=== PATIENT | female | born 2000 | race Hispanic/Latino ===

== ENCOUNTER 2022-02-23 22:48 | Emergency (ER) | payer MEDICAID, OTHER ==
[~2022-02-23] VITALS: Ht 152.4 cm; Wt 52.2 kg
[2022-02-23] MEDS ORDERED: 0.9%NACL 1000ML 1,000 ML IV ONE (23:00)
[2022-02-23 23:09] LABS: BASOPHILS % (AUTO) 0.4 % (0.0-5.0); EOSINOPHILS % (AUTO) 0.7 % (0.0-8.0); HEMATOCRIT 31.7 % (36-48); LYMPHOCYTES % (AUTO) 29.9 % (21.0-51.0); MEAN CORPUSCULAR HEMOGLOBIN 30.4 pg (27.0-33.0); MEAN CORPUSCULAR HGB CONC 32.5 g/dL (32.0-36.0); MEAN CORPUSCULAR VOLUME 93.5 fL (80-100); MONOCYTES % (AUTO) 9.1 % (3.0-13.0); NEUTROPHILS % (AUTO) 59.7 % (40.0-77.0); PLATELET COUNT (AUTO) 315 K/uL (130-400); RED BLOOD CELL COUNT(AUTO) 3.39 MIL/uL (4.00-5.50); RED CELL DISTRIBUTION WIDTH 12.5 % (11.0-15.5); WHITE BLOOD COUNT (AUTO) 8.4 K/uL (4.8-10.8)
[2022-02-23 23:27] LABS: CREATININE 0.9 mg/dL (0.5-1.5); POTASSIUM 3.7 mmol/L (3.5-5.1)
[2022-02-23] MEDS ORDERED: KETOROLAC 15MG/ML VIAL (15MG/ML) IV ONE (23:30)
[2022-02-23] MEDS ORDERED: METOCLOPRAMIDE 10 MG/2 ML VIAL IVP ONE (23:30)
[2022-02-23] MEDS ORDERED: DiphenhydrAMINE HCL 50 MG/ML VIAL IV ONE (23:30)
[2022-02-23] MEDS ORDERED: FAMOTIDINE 20MG VIAL IV ONE (23:30)
[2022-02-23 23:31] LABS: ALBUMIN 3.5 g/dL (3.5-5.0); BILIRUBIN,TOTAL 0.4 mg/dL (0.2-1.0); TOTAL PROTEIN, SERUM 7.7 g/dL (6.0-8.3)
[2022-02-23 23:51] LABS: APPEARANCE,URINE Clear (CLEAR); BILIRUBIN,URINE Negative (NEGATIVE); COLOR,URINE Yellow (YELLOW); GLUCOSE, URINE (UA) Negative (NEGATIVE); KETONES,URINE Trace mg/dL (NEGATIVE); LEUKOCYTE ESTERASE ,URINE Small (NEGATIVE); NITRATE,URINE Negative (NEGATIVE); OCCULT BLOOD,URINE Negative (NEGATIVE); PH,URINE 7.5 (5.0-8.0); PROTEIN,URINE Negative (NEGATIVE)
[2022-02-23 23:53] LABS: HCG,QUAL RESULT NEGATIVE (NEGATIVE)
[2022-02-23 23:59] LABS: BACTERIA,URINE Rare /HPF (None Seen); RBC,URINE None Seen /HPF (0-1); SQUAMOUS EPITHELIAL CELL,UR 0-2 /HPF (0-2)
[2022-02-24] MEDS ORDERED: HALOPERIDOL INJ 5 MG/ML VIAL IM SCH (00:30)
[2022-02-24 02:00] VITALS: BP 124/89
[2022-02-24] MEDS ORDERED: ONDANSETRON 4MG INJ IVP ONE (04:30)
[2022-02-24] MEDS ORDERED: MORPHINE 4 MG SYG IVP ONE (04:30)
[2022-02-24] MEDS ORDERED: CEFTRIAXONE 1G VIAL IVP ONE (04:30)
[2022-02-24] MEDS ORDERED: DOXYCYCLINE HYCLATE 100 MG TABLET PO SCH (04:30)
[2022-02-24] MEDS ORDERED: ACET-2079 PO (04:35)
[2022-02-24] MEDS ORDERED: DOXY-336 PO (04:35)
== END 2022-02-24 05:54 | disposition home or self-care (01) ==
LOC: EDH 22:48
DX: N73.0 Acute parametritis and pelvic cellulitis (principal); N83.201 Unspecified ovarian cyst, right side
CPT/HCPCS: 36415; 74176; 80053; 81001; 81025; 83690; 85025; 87210; 87486; 87797; 96361; 96374; 96375 ×2; 99284; J0696; J1200; J1885; J2270; J2405; J2765; J3490; J7030

== ENCOUNTER 2022-09-22 21:57 | Emergency (ER) | payer BC, OTHER ==
[~2022-09-22 21:57] MED LIST: ACET-2079 PO; DOXY-469 PO
[2022-09-22] MEDS ORDERED: ONDANSETRON ODT 4MG TAB SL STA (23:52)
[2022-09-23 01:26] VITALS: BP 167/73
== END 2022-09-23 01:35 | disposition home or self-care (01) ==
LOC: EDH 21:57
DX: R11.2 Nausea with vomiting, unspecified (principal); K08.89 Other specified disorders of teeth and supporting structures; Z88.0 Allergy status to penicillin; F17.200 Nicotine dependence, unspecified, uncomplicated

== ENCOUNTER 2023-08-05 13:24 | Emergency (ER) | payer BC, MEDICAID ==
[~2023-08-05] VITALS: Ht 152.4 cm; Wt 56.7 kg
[2023-08-05] MEDS ORDERED: ONDANSETRON 4MG INJ IVP ONE (14:00)
[2023-08-05] MEDS ORDERED: ACETAMINOPHEN 325 MG TAB PO ONE (14:00)
[2023-08-05] MEDS ORDERED: 0.9%NACL 1000ML 1,000 ML IV ONE (14:00)
[2023-08-05 14:44] LABS: BASOPHILS # (AUTO) 0.03 K/uL (0.00-0.20); BASOPHILS % (AUTO) 0.3 % (0.0-5.0); EOSINOPHILS # (AUTO) 0.05 K/uL (0.00-0.70); EOSINOPHILS % (AUTO) 0.6 % (0.0-8.0); HEMATOCRIT 31.2 % (36-48); IMMATURE GRANULOCYTE ABSOLUTE 0.03 K/uL (0-1); LYMPHOCYTES # (AUTO) 2.1 K/uL (1.0-4.8); LYMPHOCYTES % (AUTO) 22.9 % (21.0-51.0); MEAN CORPUSCULAR HEMOGLOBIN 31.3 pg (27.0-33.0); MEAN CORPUSCULAR HGB CONC 34.3 g/dL (32.0-36.0); MEAN CORPUSCULAR VOLUME 91.2 fL (79-99); MONOCYTES # (AUTO) 0.8 K/uL (0.1-1.0); MONOCYTES % (AUTO) 8.4 % (3.0-13.0); NEUTROPHILS % (AUTO) 67.5 % (40.0-77.0); PLATELET COUNT (AUTO) 285 K/uL (130-400); RED BLOOD CELL COUNT(AUTO) 3.42 MIL/uL (4.00-5.50); RED CELL DISTRIBUTION WIDTH 11.9 % (11.0-15.5); WHITE BLOOD COUNT (AUTO) 8.9 K/uL (4.8-10.8)
[2023-08-05 14:57] LABS: CREATININE 0.6 mg/dL (0.5-1.5); POTASSIUM 3.6 mmol/L (3.5-5.1)
[2023-08-05 15:02] LABS: ALBUMIN 3.1 g/dL (3.5-5.0); BILIRUBIN,TOTAL 0.2 mg/dL (0.2-1.0)
[2023-08-05 15:43] LABS: APPEARANCE,URINE CLEAR (CLEAR); BILIRUBIN,URINE NEGATIVE (NEGATIVE); COLOR,URINE YELLOW (YELLOW); GLUCOSE, URINE (UA) NEGATIVE (NEGATIVE); KETONES,URINE 5 mg/dL (NEGATIVE); LEUKOCYTE ESTERASE ,URINE NEGATIVE Leu/uL (NEGATIVE); NITRATE,URINE NEGATIVE (NEGATIVE); OCCULT BLOOD,URINE NEGATIVE (NEGATIVE); PH,URINE 5.5 (5.0-8.0); PROTEIN,URINE 20 mg/dL (NEGATIVE); UROBILINOGEN,URINE 0.2 mg/dL (0.2-1.0)
[2023-08-05 15:46] LABS: ADD UA MICROSCOPIC YES
[2023-08-05 15:49] LABS: BACTERIA,URINE RARE /HPF (None Seen); MUCUS,URINE FEW LPF (None Seen); RBC,URINE 0-1 /HPF (0-1); SQUAMOUS EPITHELIAL CELL,UR FEW /HPF (0-2)
[2023-08-05] MEDS ORDERED: LACTATED RINGERS 1000ML 1,000 ML IV ONE (16:00)
[2023-08-05 16:30] VITALS: BP 126/64; PULSE 66; RESP 18; O2SAT 99
== END 2023-08-05 16:48 | disposition home or self-care (01) ==
LOC: EDH 13:24
DX: O47.9 False labor, unspecified (principal); O99.330 Smoking (tobacco) complicating pregnancy, unspecified trimester; F17.200 Nicotine dependence, unspecified, uncomplicated; Z79.899 Other long term (current) drug therapy; Z88.0 Allergy status to penicillin; Z3A.12 12 weeks gestation of pregnancy
CPT/HCPCS: 99285; 96361; 96374; 76801; 80053; 85025; 81001; 36415; J7120; J7030; J2405

== ENCOUNTER 2023-08-26 11:39 | Emergency (ER) | payer MEDICAID ==
[~2023-08-26] VITALS: Ht 152.4 cm; Wt 57.6 kg
[2023-08-26 11:53] VITALS: BP 115/71; PULSE 67; RESP 17
[2023-08-26 12:32] LABS: SARS-CoV-2, RNA, NAAT NEGATIVE SARS CoV-2 (NEGATIVE)
[2023-08-26 12:38] LABS: INFLUENZA TYPE A Negative For Type A (NEGATIVE); INFLUENZA TYPE B Negative For Type B (NEGATIVE)
[2023-08-26 12:52] LABS: ADD UA MICROSCOPIC YES; APPEARANCE,URINE CLEAR (CLEAR); BILIRUBIN,URINE NEGATIVE (NEGATIVE); COLOR,URINE YELLOW (YELLOW); GLUCOSE, URINE (UA) NEGATIVE (NEGATIVE); HCG,QUALITATIVE URINE POSITIVE (NEGATIVE); KETONES,URINE NEGATIVE (NEGATIVE); LEUKOCYTE ESTERASE ,URINE 25 Leu/uL (NEGATIVE); NITRATE,URINE NEGATIVE (NEGATIVE); OCCULT BLOOD,URINE NEGATIVE (NEGATIVE); PROTEIN,URINE 10 mg/dL (NEGATIVE); UROBILINOGEN,URINE 0.2 mg/dL (0.2-1.0)
[2023-08-26 12:55] LABS: MUCUS,URINE RARE LPF (None Seen); RBC,URINE 0-1 /HPF (0-1); SQUAMOUS EPITHELIAL CELL,UR MOD /HPF (0-2)
[2023-08-26] MEDS ORDERED: ACET-2893 PO (13:30)
[2023-08-26] MEDS ORDERED: NYST15OI TP (13:37)
== END 2023-08-26 13:55 | disposition home or self-care (01) ==
LOC: EDH 11:39
DX: O23.592 Infection of other part of genital tract in pregnancy, second trimester (principal); B37.31 Acute candidiasis of vulva and vagina; B34.9 Viral infection, unspecified; F17.200 Nicotine dependence, unspecified, uncomplicated; Z20.822 Contact with and (suspected) exposure to COVID-19; Z3A.16 16 weeks gestation of pregnancy; Z88.0 Allergy status to penicillin
CPT/HCPCS: 99283; 87635; 87804 ×2; 81001; 81025; C9803

== ENCOUNTER 2023-10-18 18:55 | Observation (INO) | payer MEDICAID ==
[~2023-10-18] VITALS: Ht 165.1 cm; Wt 64.9 kg
[~2023-10-18 18:55] MED LIST changes: +ACET-2893 PO; +NYST15OI TP
[2023-10-18 18:57] VITALS: BP 137/66; PULSE 70; RESP 16
[2023-10-18 19:53] LABS: APPEARANCE,URINE CLEAR (CLEAR); BILIRUBIN,URINE NEGATIVE (NEGATIVE); COLOR,URINE LIGHT-YELLOW (YELLOW); GLUCOSE, URINE (UA) NEGATIVE (NEGATIVE); KETONES,URINE NEGATIVE (NEGATIVE); LEUKOCYTE ESTERASE ,URINE NEGATIVE Leu/uL (NEGATIVE); NITRATE,URINE NEGATIVE (NEGATIVE); OCCULT BLOOD,URINE NEGATIVE (NEGATIVE); PROTEIN,URINE NEGATIVE (NEGATIVE); UROBILINOGEN,URINE 0.2 mg/dL (0.2-1.0)
[2023-10-18 19:56] LABS: ADD UA MICROSCOPIC NO
== END 2023-10-18 20:50 | disposition home or self-care (01) ==
LOC: EDH 18:55 → LDH 18:56
PROVIDERS: ADMIT Obstetrics & Gynecology; ATTEND Obstetrics & Gynecology
DX: O26.852 Spotting complicating pregnancy, second trimester (principal); O26.892 Other specified pregnancy related conditions, second trimester; R10.13 Epigastric pain; Z88.0 Allergy status to penicillin; Z3A.23 23 weeks gestation of pregnancy
CPT/HCPCS: 81003; G0378

== ENCOUNTER → 2023-11-07 | Outpatient (CLI) | payer MEDICAID | END | disposition home or self-care (01) | LOC: RAH 10:00 | PROVIDERS: ATTEND Obstetrics & Gynecology | DX: R10.11 Right upper quadrant pain (principal); Z34.82 Encounter for supervision of other normal pregnancy, second trimester; Z3A.00 Weeks of gestation of pregnancy not specified | CPT/HCPCS: 76700 ==

== ENCOUNTER 2023-12-10 14:43 | Observation (INO) | payer MEDICAID ==
[~2023-12-10] VITALS: Ht 154.9 cm; Wt 70.8 kg
[2023-12-10 15:03] VITALS: BP 128/66; PULSE 67; RESP 17
[2023-12-10 15:41] LABS: APPEARANCE,URINE CLOUDY (CLEAR); BILIRUBIN,URINE NEGATIVE (NEGATIVE); COLOR,URINE YELLOW (YELLOW); GLUCOSE, URINE (UA) NEGATIVE (NEGATIVE); KETONES,URINE NEGATIVE (NEGATIVE); LEUKOCYTE ESTERASE ,URINE 75 Leu/uL (NEGATIVE); NITRATE,URINE NEGATIVE (NEGATIVE); OCCULT BLOOD,URINE NEGATIVE (NEGATIVE); PROTEIN,URINE 20 mg/dL (NEGATIVE); UROBILINOGEN,URINE 0.2 mg/dL (0.2-1.0)
[2023-12-10 15:43] LABS: ADD UA MICROSCOPIC YES
[2023-12-10 15:45] LABS: BACTERIA,URINE FEW /HPF (None Seen); MUCUS,URINE RARE LPF (None Seen); SQUAMOUS EPITHELIAL CELL,UR MOD /HPF (0-2)
== END 2023-12-10 16:15 | disposition home or self-care (01) ==
LOC: EDH 14:43 → LDH 15:21
PROVIDERS: ADMIT Obstetrics & Gynecology; ATTEND Obstetrics & Gynecology
DX: O26.893 Other specified pregnancy related conditions, third trimester (principal); M25.471 Effusion, right ankle; M25.472 Effusion, left ankle; Z3A.31 31 weeks gestation of pregnancy; Z79.899 Other long term (current) drug therapy
CPT/HCPCS: 87088; 81001; G0379; G0378